=== PATIENT | female | born 1945 | race Caucasian/White ===

== ENCOUNTER 2018-06-09 09:00 | Outpatient (RCR) | payer MEDICARE, BC ==
--- NOTE | 2018-06-03 11:40 | NUR ---
05/30/18 Patient in today for Treatment team review. Pt presents clean and neat, alert and oriented x4. Pt is in a mildly bright mood. Pt states she is coping well. Pt states she is getting alot of support from group therapy. Pt denies any suicidal thoughts at present time. Pt will continue with IOP 2x/week. Pt will follow up in one month. Treatment team concluded.
[~2018-06-09 09:00] MED LIST: AMLODIPINE5 MG PO; ARICEPT PO; BACLOFEN10 MG PO; CLONAZEP ODT0.5 MG PO; CYMBALTA30 MG PO; CYMBALTA60 MG PO; ECONOPRED PL1 % IO; FLUOROMETHOL0.1 % OP; GABAPENTIN300 M2 PO; GATIFLOXACIN 0.5%; GLUCOPHAGE PO; LIPITOR20 M1 PO; LISINOP/HCTZ1 TA1 PO; METFORMIN HCL500 M3 PO; METFORMIN500 M1 PO; METOPROL TAR25 MG PO; NYSTATI1 TOP; PROAIR HFA IN; TRAZODONE100 MG PO
== END 2018-06-12 23:59 | disposition still patient (30) ==
LOC: PATHWAYS 09:00
PROVIDERS: ATTEND Specialist
DX: F33.8 Other recurrent depressive disorders (principal); F41.1 Generalized anxiety disorder; F50.00 Anorexia nervosa, unspecified